=== PATIENT | female | born 1960 | race Caucasian/White ===

== ENCOUNTER → 2024-11-23 14:02 | Outpatient (REF) | payer OTHER, SELFPAY | LOC: HWWDC 14:02 | PROVIDERS: ATTENDING PHYSICIAN Obstetrics & Gynecology Gynecology; FAMILY PHYSICIAN Family Medicine | DX: Z12.31 Encounter for screening mammogram for malignant neoplasm of breast (principal) | CPT/HCPCS: 77063; 77067 ==

== ENCOUNTER 2025-03-21 05:49 | Day surgery (SDC) | payer OTHER, SELFPAY ==
[2025-03-15 09:09] LABS: Hematocrit 39.7 % (37.0-47.0); Hemoglobin 13.4 g/dL (12.0-16.0); Mean Corp Hgb Conc. 33.8 g/dL (33.0-37.0); Mean Corpuscular Volume 93.6 fL (81.0-99.0); Platelet Count 253 10^3/uL (130-400); Red Cell Dist. Width 12.8 % (11.5-14.5)
[2025-03-15 13:56] VITALS: BMI 24.9
--- NOTE | 2025-03-15 14:27 | PTCARENOTE ---
Abnormal ECG from today was reviewed by and no actions were requested.
[2025-03-21] VITALS (12 sets, daily range): BP systolic 106–142; BP diastolic 53–78; BMI 24.9
[2025-03-21] MEDS: HEPARIN 5000 UNITS SC (06:23)
[2025-03-21] MEDS: NORMOSOL-R/PLASMALYTE-A 1000 IV (06:23)
== END 2025-03-21 15:40 | disposition home or self-care (01) ==
LOC: SDS 05:49
PROVIDERS: ATTENDING PHYSICIAN Obstetrics & Gynecology; FAMILY PHYSICIAN Family Medicine
DX: N81.3 Complete uterovaginal prolapse (principal); N39.3 Stress incontinence (female) (male); N83.8 Other noninflammatory disorders of ovary, fallopian tube and broad ligament; N83.292 Other ovarian cyst, left side; N95.2 Postmenopausal atrophic vaginitis; R94.31 Abnormal electrocardiogram [ECG] [EKG]; K29.70 Gastritis, unspecified, without bleeding; E78.5 Hyperlipidemia, unspecified; F32.A Depression, unspecified; F41.9 Anxiety disorder, unspecified; Z80.42 Family history of malignant neoplasm of prostate; Z80.7 Family history of other malignant neoplasms of lymphoid, hematopoietic and related tissues; Z80.3 Family history of malignant neoplasm of breast; Z80.8 Family history of malignant neoplasm of other organs or systems; Z82.49 Family history of ischemic heart disease and other diseases of the circulatory system
CPT/HCPCS: 57425; 58542; 57250; 57288; 36415; 85027; 86850; 86900; 86901; 88305; 93005; C1713; C1763; C1771

== ENCOUNTER 2025-06-16 14:49 | Outpatient (RCR) | payer OTHER, SELFPAY | END 2025-06-16 23:59 | disposition home or self-care (01) | LOC: RPT 14:49 | PROVIDERS: ATTENDING PHYSICIAN Obstetrics & Gynecology; FAMILY PHYSICIAN Family Medicine | DX: M62.89 Other specified disorders of muscle (principal); Z73.6 Limitation of activities due to disability; R35.0 Frequency of micturition; R32 Unspecified urinary incontinence; Z98.890 Other specified postprocedural states | CPT/HCPCS: 97161; 97530 ==

== ENCOUNTER 2025-06-21 07:07 | Outpatient (RCR) | payer OTHER, SELFPAY | END 2025-07-04 12:29 | disposition home or self-care (01) | LOC: RPT 07:07 | PROVIDERS: ATTENDING PHYSICIAN Obstetrics & Gynecology; FAMILY PHYSICIAN Family Medicine | DX: M62.89 Other specified disorders of muscle (principal); Z73.6 Limitation of activities due to disability; R35.0 Frequency of micturition; R32 Unspecified urinary incontinence; Z98.890 Other specified postprocedural states | CPT/HCPCS: 97110; 97140; 97530 ==